=== PATIENT | female | born 1960 | race Caucasian/White ===

== ENCOUNTER 2019-04-17 22:20 | Emergency (ER) | payer MEDICARE, BC ==
[2019-04-17] MEDS ORDERED: ACETAMINOPHEN 325 MG TABLET PO ONE (23:45)
[2019-04-18] MEDS ORDERED: RINGERS SOLUTION,LACTATED 1,000 ML IV ONE (00:15)
[2019-04-18] MEDS ORDERED: LIDOCAINE 2% JELLY 5 ML TUBE TOP ONE (00:41)
[2019-04-18] MEDS ORDERED: KETOROLAC TROMETHAMINE INJ/PF 30 MG/1 ML SDV IV ONE (00:41)
[2019-04-18 00:57] LABS: ALANINE AMINOTRANSFERASE 111 U/L (9-52); ALBUMIN 4.6 g/dL (3.5-5.0); ALKALINE PHOSPHATASE 95 U/L (38-126); ANION GAP 12 (5-19); ASPARTATE AMINO TRANSFERASE 107 U/L (14-36); BILIRUBIN,DIRECT 0.3 mg/dL (0.0-0.4); BILIRUBIN,TOTAL 0.5 mg/dL (0.2-1.3); BLOOD UREA NITROGEN 13 mg/dL (7-20); CALCIUM 9.4 mg/dL (8.4-10.2); CARBON DIOXIDE 24 mmol/L (22-30); CHLORIDE 104 mmol/L (98-107); GLUCOSE 151 mg/dL (75-110); POTASSIUM 3.9 mmol/L (3.6-5.0); SODIUM 139.6 mmol/L (137-145); TOTAL PROTEIN 7.4 g/dL (6.3-8.2)
[2019-04-18 00:59] LABS: VENOUS BLOOD BASE EXCESS -0.8 mmol/L; VENOUS BLOOD HCO3 23.7 mmol/L (20-32); VENOUS BLOOD PCO2 38.8 mmHg (35-63); VENOUS BLOOD PH 7.4 (7.30-7.42)
[2019-04-18 01:09] LABS: BACTERIA (WET MOUNT) 3+ BACTERIA SEEN; RBCS (WET MOUNT) 3+ RBCS SEEN; T.VAGINALIS (WET MOUNT) NO TRICHOMONAS SEEN; WBCS (WET MOUNT) 4+ WBCS SEEN; YEAST (WET MOUNT) NO YEAST SEEN
[2019-04-18 01:24] LABS: APPEARANCE,URINE SLIGHTLY-CLOUDY; BILIRUBIN,URINE NEGATIVE (NEGATIVE); COLOR,URINE YELLOW; GLUCOSE, URINE NEGATIVE (NEGATIVE); KETONES,URINE NEGATIVE (NEGATIVE); LEUKOCYTE ESTERASE,URINE TRACE (NEGATIVE); NITRITE,URINE NEGATIVE (NEGATIVE); PROTEIN,URINE NEGATIVE (NEGATIVE); URINE SPECIFIC GRAVITY 1.014; UROBILINOGEN,URINE NEGATIVE mg/dL (<2.0)
[2019-04-18 01:30] LABS: ABSOLUTE MONOCYTES (AUTO) 0.5 10^3/uL (0.1-1.4); ABSOLUTE NEUT (AUTO) 4.1 10^3/uL (1.7-8.2); BASOPHILS % (AUTO) 0.2 % (0-2); EOSINOPHILS % (AUTO) 0.4 % (0-6); HEMATOCRIT 39.1 % (36.0-47.0); HEMOGLOBIN 13.2 g/dL (12.0-15.5); LYMPHOCYTES % (AUTO) 17.7 % (13-45); MEAN CORPUSCULAR HEMOGLOBIN 29.6 pg (27.0-33.4); MEAN CORPUSCULAR HGB CONC 33.8 g/dL (32.0-36.0); MEAN CORPUSCULAR VOLUME 88 fl (80-97); MONOCYTES % (AUTO) 8.9 % (3-13); PLATELET COUNT 155 10^3/uL (150-450); RED BLOOD COUNT 4.46 10^6/uL (3.72-5.28); RED CELL DISTRIBUTION WIDTH 13.7 % (11.5-14.0); SEGMENTED NEUTROPHILS % (AUTO) 72.8 % (42-78); TOTAL CELLS COUNTED % (AUTO) 100 %; WHITE BLOOD COUNT 5.6 10^3/uL (4.0-10.5)
[2019-04-18] MEDS ORDERED: LIDOCAINE 1% INJ-PF (10 MG/ML) 30 ML SDV NEB ONE (01:52)
[2019-04-18] MEDS ORDERED: CEFTRIAXONE INJ 250 MG VIAL IM ONE (01:52)
[2019-04-18] MEDS ORDERED: DOXYCYCLINE HYCLATE 100 MG TABLET PO ONE (01:52)
[2019-04-18] MEDS ORDERED: VALACYCLOVIR HCL 500 MG TABLET PO ONE (01:52)
--- NOTE | 2019-04-18 02:04 | ER Document Report ---
ED General - General Chief Complaint: Vaginal Pain Stated Complaint: LABIA PAIN Time Seen by Provider: 04/17/19 22:57 Notes: Patient is a 59-year-old female past medical history of diabetes, COPD, presents with complaints of 2 to 3 days of progressively worsening vaginal pain, multiple ulcerative lesions and discharge in the vaginal area. She describes a severe, burning, constant pain that is worsened by touching the area or urinating, not improved by anything. Denies any history of similar lesions in the past. Has not seen her primary care physician regarding today's concerns that she is visiting from out of town. She has had fever today. It is associated shaking and chills. Cough, sputum production, headache, neck pain weakness, numbness or confusion. Denies any history of herpes in the past. She is monogamous with her . TRAVEL OUTSIDE OF THE [place] IN LAST 30 DAYS: No - Related Data Allergies/Adverse Reactions: codeine Adverse Reaction (Verified 04/17/19 22:33) Past Medical History - General Information source: Patient - Social History Smoking Status: Never Smoker Chew tobacco use (# tins/day): No Frequency of alcohol use: None Drug Abuse: None Lives with: Spouse/Significant other Family History: Reviewed & Not Pertinent Patient has suicidal ideation: No Patient has homicidal ideation: No - Past Medical History Cardiac Medical History: Reports: Hx Hypercholesterolemia Endocrine Medical History: Reports: Hx Diabetes Mellitus Type 2 Renal/ Medical History: Denies: Hx Peritoneal Dialysis Past Surgical History: Reports: Hx Orthopedic Surgery, Hx Tonsillectomy Review of Systems - Review of Systems Notes: Constitutional: Negative for fever. HENT: Negative for sore throat. Eyes: Negative for visual changes. Cardiovascular: Negative for chest pain. Respiratory: Negative for shortness of breath. Gastrointestinal: Negative for abdominal pain, vomiting or diarrhea. Genitourinary: Positive for vaginal pain and lesions Musculoskeletal: Negative for back pain. Skin: Negative for rash. Neurological: Negative for headaches, weakness or numbness. 10 point ROS negative except as marked above and in HPI. Physical Exam - Vital signs Vitals: Temp Pulse Resp BP Pulse Ox 101.9 F H 106 H 20 143/89 H 95 04/17/19 22:26 04/17/19 22:26 04/17/19 22:26 04/17/19 22:26 04/17/19 22:26 Interpretation: Tachycardic, Febrile Notes: PHYSICAL EXAMINATION: GENERAL: Appears uncomfortable but in no overt distress HEAD: Atraumatic, normocephalic. EYES: Pupils equal round and reactive to light, extraocular movements intact, sclera anicteric, conjunctiva are normal. ENT: nares patent, oropharynx clear without exudates. Moderately dry mucous membranes. NECK: Normal range of motion, supple without lymphadenopathy LUNGS: Breath sounds clear to auscultation bilaterally and equal. No wheezes rales or rhonchi. HEART: Regular tachycardia without murmurs ABDOMEN: Soft, nontender, normoactive bowel sounds. No guarding, no rebound. No masses appreciated. : There are scattered ulcerative lesions along the labia majora minora as well as around the clitoris and urethra. Is also scattered in the perineal region between the anus and inferior portion of the vagina. There is a client customer manager color fluid on the external portion of the vagina. Speculum examination deferred secondary to exquisite pain on even mild palpation of the external vaginal area. EXTREMITIES: Normal range of motion, no pitting or edema. No cyanosis. NEUROLOGICAL: No focal neurological deficits. Moves all extremities spontaneously and on command. PSYCH: Normal mood, normal affect. SKIN: Warm, Dry, normal turgor, no rashes or lesions noted. Course - Re-evaluation Re-evalutation: 04/18/19 02:06 Presentation of fever and a vaginal rash most consistent with herpes labialis. Patient is otherwise well in appearance, in no overt distress. Vaginal exam does show scattered ulcerative and vesicular type lesions consistent with probable herpes labialis. Abdominal exam benign. No flank tenderness. Labs overall unremarkable. Urinalysis inconsistent with urinary tract infection and this would not present with these symptoms. The patient will be started on valacyclovir for empiric treatment of herpes labialis and I will also provide coverage for possible pelvic inflammatory disease given fever with doxycycline and Flagyl. The patient is also received ceftriaxone here in the emergency department. At this time will discharge with return precautions and follow-up recommendations. Verbal discharge instructions given a the bedside and opportunity for questions given. Medication warnings reviewed. Patient is in agreement with this plan and has verbalized understanding of return precautions and the need for primary care follow-up in the next 24-72 hours. - Vital Signs Vital signs: Temp Pulse Resp BP Pulse Ox 99.7 F 106 H 20 143/89 H 95 04/18/19 01:16 04/17/19 22:26 04/17/19 22:26 04/17/19 22:26 04/17/19 22:26 - Laboratory Result Diagrams: 04/18/19 01:21 04/17/19 22:45 Laboratory results interpreted by me: 04/17/19 04/18/19 22:45 00:45 Glucose 151 H AST 107 H ALT 111 H Urine Blood SMALL H Ur Leukocyte Esterase TRACE H Discharge - Discharge Clinical Impression: Herpes labialis, Dysuria Fever Qualifiers: Fever type: unspecified Qualified Code(s): R50.9 - Fever, unspecified Condition: Good Disposition: HOME, SELF-CARE Additional Instructions: Your being treated for a vaginal infection likely herpes. You are also being treated with antibiotic to cover for possible bacterial infection. Return to the emergency department if you have worsening pain, persistent vomiting, pass out, or have any other symptoms that are worrisome to you. For your pain: Take ibuprofen 600 mg and acetaminophen 1000 mg every 6 hours together as needed for pain. Apply the topical lidocaine that is been provided here in the emergency department as needed for pain not controlled by ibuprofen and Tylenol. Prescriptions: RX: Doxycycline Monohydrate 100 mg PO BID #20 capsule Metronidazole [Flagyl 500 mg Tablet] 500 mg PO Q6H #40 tablet Valacyclovir HCl [Valacyclovir] 1,000 mg PO BID #20 tablet
[2019-04-18 02:43] LABS: CHLAM PCR NOT DETECTED (NOT DETECT)
[2019-04-18 03:33] VITALS: BP 118/73
== END 2019-04-18 03:33 | disposition home or self-care (01) ==
LOC: ER 22:20
DX: B00.1 Herpesviral vesicular dermatitis (principal); R50.9 Fever, unspecified; R10.2 Pelvic and perineal pain; R30.0 Dysuria; E11.9 Type 2 diabetes mellitus without complications; J44.9 Chronic obstructive pulmonary disease, unspecified; R00.0 Tachycardia, unspecified
CPT/HCPCS: 94640; 99283; 96372; 96361; 96374; 36415; 87040; 87086; 87210; 85025; 87088; 80053; 81001; 87250; 87491; 87591; 83605; 82803; A9270 ×3; J3490; J1885; J7120; J0696